=== PATIENT | male | born 1970 | race Two or more races ===

== ENCOUNTER 2019-02-11 20:42 | Emergency (ER) | payer OTHER ==
[~2019-02-11] VITALS: Ht 175.3 cm; Wt 88.6 kg
[2019-02-12] MEDS ORDERED: ValACYclovir HCL 500 MG TABLET PO ONE (00:30)
[2019-02-12] MEDS ORDERED: HYDROCODONE/ACETAMINOPHEN 5-325 MG TABLET PO ONE (00:30)
[2019-02-12] MEDS ORDERED: PROPARACAINE HCL 0.5% 15 ML OPHTHALMIC SOLUTION OU ONE (01:30)
[2019-02-12] MEDS ORDERED: FLUORESCEIN SODIUM 1 MG STRIP OD ONE (01:30)
[2019-02-12 02:13] VITALS: BP 131/80
== END 2019-02-12 02:15 | disposition home or self-care (01) ==
LOC: EMS 20:43
DX: C85.99 Non-Hodgkin lymphoma, unspecified, extranodal and solid organ sites (principal); B02.21 Postherpetic geniculate ganglionitis; B02.8 Zoster with other complications